=== PATIENT | male | born 1985 | race Caucasian/White ===

== ENCOUNTER 2016-06-14 16:51 | Emergency (ER) | payer OTHER ==
[~2016-06-14] VITALS: Ht 172.7 cm; Wt 75.0 kg
[2016-06-14 17:15] VITALS: BP 131/76
[2016-06-14] MEDS ORDERED: QUEtiapine FUMARATE 100 MG TABLET PO ONE (17:15)
== END 2016-06-14 17:53 | disposition home or self-care (01) ==
LOC: EMS 16:52 → EEVIPCON 16:52 → EMS 17:53
DX: F60.3 Borderline personality disorder (principal); F17.210 Nicotine dependence, cigarettes, uncomplicated
CPT/HCPCS: 99283; 99284